=== PATIENT | male | born 1950 | race Caucasian/White ===

== ENCOUNTER 2021-04-27 15:55 | Emergency (ER) | payer MEDICARE, OTHER ==
[~2021-04-27] VITALS: Ht 180.3 cm; Wt 78.9 kg
[2021-04-27 16:02] VITALS: BP 104/69
--- NOTE | 2021-04-27 16:02 | NUR ---
BIBA TAKEN TO BED 4
--- NOTE | 2021-04-27 16:19 | NUR ---
71 YO M BIBA S/P FALL. PER EMS PATIENT WAS FOUND BY NEIGHBORS LAYING BETWEEN TWO CARS UNABLE TO GET UP. PATIENT STATES HE TRIPPED AND FELL WHILE WALKING WITH HIS WALKER. ABRASIONS NOTED TO RIGHT ELBOW AND RIGHT KNEE AND NO ACTIVE BLEEDING. PT STATES PAIN 5/10. PATIENT DENIES HEAD INJURY, LOC AND SOB. PT IS A&OX 4 AND APPEARS TO BE IN NO DISTRESS. ALL SAFETY PRECAUTIONS APPLIED. MEDHX: PARKINSONS ALLERGIES: DENIES
--- NOTE | 2021-04-27 16:27 | NUR ---
Patient taken for CT scan via [facility] at this time.
--- NOTE | 2021-04-27 16:37 | NUR ---
PT BROUGHT BACK FROM CT.
[2021-04-27 17:57] VITALS: BP 115/75
--- NOTE | 2021-04-27 18:10 | NUR ---
Patient discharged with v/s stable. Written and verbal after care instructions OF FALL PREVENTION IN THE HOME given and explained. Patient verbalized understanding. Ambulatory with steady gait. All questions addressed prior to discharge. Advised to follow up with PMD.
== END 2021-04-27 18:10 | disposition home or self-care (01) ==
LOC: MED 15:55
DX: S16.1XXA Strain of muscle, fascia and tendon at neck level, initial encounter (principal); S50.311A Abrasion of right elbow, initial encounter; S80.211A Abrasion, right knee, initial encounter; S09.90XA Unspecified injury of head, initial encounter; G20 Parkinson's disease; W22.8XXA Striking against or struck by other objects, initial encounter; Y93.89 Activity, other specified; Y92.89 Other specified places as the place of occurrence of the external cause; Y99.8 Other external cause status
CPT/HCPCS: 70450; 72125; 99285